=== PATIENT | male | born 1935 | race Asian ===

== ENCOUNTER → 2020-12-21 12:02 | Outpatient (CLI) | payer MEDICARE, OTHER, SELFPAY ==
--- NOTE | 2020-12-21 13:32 | DI.MRI.S_ITS ---
PROCEDURE: MR HEAD/BRAIN WO/W CON INDICATIONS: Benign neoplasm of meninges, unspecified TECHNIQUE: Noncontrast axial T1 spin echo, axial T2 fast spin echo, sagittal and axial FLAIR, coronal T2 fast spin echo, axial gradient echo, axial diffusion and ADC through the brain. After the administration of contrast, axial and coronal T1 spin echo with fat saturation through the brain. COMPARISON: Outside Facility, RG, CT HEAD W/O CONTRAST, 03/17/2019, 9:41. Outside Facility, RG, CT HEAD W/O CONTRAST, 06/04/2019, 13:15. Outside Facility, RG, MRI HEAD W/O CONTRAST, 06/04/2019, 17:02. Outside Facility, RG, CT HEAD W/O CONTRAST, 11/26/2019, 21:35. Outside Facility, RG, MRI HEAD W/WO CONTRAST, 11/27/2019, 7:38. [facility], RG, MRI BRAIN WITHOUT CONTRAST, 12/10/2019, 13:33. This dictation was delayed, awaiting outside prior images, which have now arrived. FINDINGS: Image quality: Excellent. CSF spaces: Basal cisterns are patent. No extra-axial fluid collections. Ventricles are normal in size and shape. Brain: There is again seen an extra-axial mass with a broad attachment to the dura adjacent to the lateral aspect of the right frontal lobe that measures 6 x 3.4 by 6.5 cm. There is associated mass effect seen, with midline shift 6 mm. There is associated edema seen within the right frontal lobe. There is narrowing of the right lateral ventricle. Within the mass itself, there is moderate enhancement, which is more prominent along its rim than elsewhere. There is a potential satellite nodule seen more medially, as on series 15, image 77 measuring 1.4 cm. This is clearly changed compared to the 11/27/2019 examination. There is cerebral volume loss for age. There is periventricular white matter chronic small vessel ischemic change. The brainstem appears normal. Diffusion-weighted images demonstrate no acute ischemic insults. No chronic ischemic insults. Normal intravascular flow voids are present. Skull and face: Calvarial marrow is normal in signal. Orbits appear normal. Sinuses: Sinuses and mastoids appear clear. IMPRESSION: There is an extra-axial mass seen on the right side, which now measures up to 6.5 cm and is clearly and prominently progressed compared to the 11/27/2019 examination. There is associated mass effect, with midline shift of 6 mm. There is associated narrowing of the right lateral ventricle. There is brain edema seen within the right frontal lobe. Given the rapid growth, this may be related to aggressive, recurrent meningioma or be related to another neoplasm. Note: Dr. Duggan was not available to discuss this case at the time of this dictation. Case discussed by telephone with the patient's , Deb, at 7:15 p.m. [place] time on 12/21/2020. Dictated by: Giuseppe Dockery M.D. on 12/21/2020 at 16:55 Transcribed by: SADE on 12/21/2020 at 17:10 Approved by: Giuseppe Dockery M.D. on 12/21/2020 at 19:26
== END ==
PROVIDERS: Family Provider Family Medicine; PCP Family Medicine; Referring Provider Family Medicine; Visit Provider Family Medicine
DX: D32.9 Benign neoplasm of meninges, unspecified (principal); G93.6 Cerebral edema; R53.1 Weakness; R27.9 Unspecified lack of coordination
CPT/HCPCS: 70553; A9579

== ENCOUNTER → 2021-07-21 16:44 | Outpatient (CLI) | payer MEDICARE, OTHER, SELFPAY ==
--- NOTE | 2021-07-21 16:45 | DI.MRI.S_ITS ---
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 After the administration of contrast, axial and coronal 3D VIBE or T1 spin echo with fat saturation through the brain. COMPARISON: Outside Facility, RG, MRI BRAIN W/WO CONTRAST, 01/24/2021, 18:45. Outside Facility, RG, ANGIO CEREBRAL INTERVENTION, 01/18/2021, 11:26. [facility], , MR HEAD/BRAIN WO/W CON, 12/21/2020, 13:12. FINDINGS: Cerebrum, Cerebellum and Brainstem: Volume loss, encephalomalacia, postoperative old blood products and gliosis noted centered on the right temporal and parietal lobes. There is now ex vacuo prominence of the right lateral ventricular trigone, and cerebral edema with associated midline shift has resolved. Extra-axial postoperative fluid noted overlying the right temporal lobe measures up to 1.2 cm in thickness. Overlying duraplasty noted. No abnormal enhancement. Otherwise, there is moderate cerebral and cerebellar volume loss as well as moderate multifocal hyperintensities in the deep and subcortical white matter present. The diffusion sequence is normal without evidence of acute infarct. No intracranial hemorrhage, mass lesion or midline shift. Basal cisterns and foramen magnum contain appropriate anatomy and vascular flow voids. No evidence of dural or leptomeningeal thickening. Ventricles: Appropriate in size and position. No hydrocephalus. Skull Base: The bony sella, pituitary gland and infundibulum unremarkable. Clivus and craniovertebral relationships are appropriate. Visualized portions of the seventh and eighth cranial nerve complexes and internal auditory canals are within normal limits. Incidental pannus at the atlantooccipital joint results in moderate stenosis and flattening of the cord. Scalp and Calvarium: Right-sided craniotomy noted. Remaining calvarium has an appropriate marrow signal. Paranasal Sinuses: Visualized portions of the paranasal sinuses are clear. Mastoids: Unremarkable as visualized. No mastoid effusion present. Orbits: Bilateral intraocular lens replacements noted. The orbits, globes and ocular muscles are otherwise unremarkable. IMPRESSION: 1. Postoperative right parietotemporal encephalomalacia, gliosis, volume loss and old blood products status post right-sided meningioma resection appears within appropriate limits. Cerebral edema and midline shift has resolved. No evidence of recurrent or residual meningioma. 2. Underlying moderate atrophy and multifocal white matter chronic ischemic change without acute infarct. 3. 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 on 07/23/2021 at 21:57
== END ==
PROVIDERS: Family Provider Family Medicine; PCP Family Medicine; Referring Provider Psychiatry & Neurology Vascular Neurology; Visit Provider Psychiatry & Neurology Vascular Neurology
DX: D32.9 Benign neoplasm of meninges, unspecified (principal); G93.89 Other specified disorders of brain; G31.9 Degenerative disease of nervous system, unspecified; M48.02 Spinal stenosis, cervical region
CPT/HCPCS: 70553; A9579

== ENCOUNTER → 2021-08-31 10:49 | Outpatient (CLI) | payer MEDICARE, OTHER, SELFPAY ==
--- NOTE | 2021-08-31 10:58 | DI.CT.S_ITS ---
PROCEDURE: CT ANGIO CHEST PE PROTOCOL INDICATIONS: Shortness of breath TECHNIQUE: After the administration of intravenous contrast, 2 mm thick sections acquired from the pulmonary apices to the posterior costophrenic angles. 3-dimensional maximum intensity projection (MIP) coronal and sagittal reformats were then acquired through the thorax. For radiation dose reduction, the following was used: automated exposure control, adjustment of mA and/or kV according to patient size. COMPARISON: [facility], CT, CHEST/ABD/PEL WITH CONTRAST, 09/14/2014, 8:05. FINDINGS: Image quality: Excellent. Pulmonary arteries: Pulmonary arteries are normal in size, and demonstrate no intraluminal filling defects to suggest central pulmonary embolism. Lungs and pleura: Lungs are clear. No pleural effusions or pneumothorax. Central and peripheral airways are patent. Mediastinum: Heart size is enlarged, without pericardial effusion. Calcification of the coronary vasculature. New hilar and mediastinal adenopathy is present, largest of which measures 11 mm in the right paratracheal location, 18 mm short axis in the right hilar location, and 18 mm short axis in the subcarinal location. Thoracic aorta is normal in caliber and enhancement. Esophagus is normal in caliber, without hiatal hernia. Bones and chest wall: No suspicious bony lesions. Ribs and thoracic spine appear intact throughout. Thyroid gland is grossly unremarkable. Pathologically enlarged right in for axillary lymph node measuring 9 mm short axis. Right supraclavicular adenopathy measuring 10 mm short axis. Abdomen: Visualized portions of the upper abdomen demonstrate splenomegaly (spleen measures at least 17.4 cm ), as well as gastrohepatic ligament adenopathy measuring roughly 14 mm short axis. IMPRESSION: 1. New multifocal adenopathy above and below the diaphragm associated with splenomegaly. Differential considerations include lymphoma, as well as metastatic disease. 2. Coronary artery disease. 3. No pulmonary embolus. Dictated by: [facility] Neves M.D. on 08/31/2021 at 11:39 Approved by: [facility] Neves M.D. on 08/31/2021 at 11:44
== END ==
PROVIDERS: Family Provider Family Medicine; PCP Family Medicine; Referring Provider Family Medicine; Visit Provider Family Medicine
DX: R06.02 Shortness of breath (principal); I51.7 Cardiomegaly; I25.10 Atherosclerotic heart disease of native coronary artery without angina pectoris; R59.1 Generalized enlarged lymph nodes; R16.1 Splenomegaly, not elsewhere classified
CPT/HCPCS: 71275; Q9967

== ENCOUNTER → 2021-11-22 12:05 | Outpatient (CLI) | payer MEDICARE, OTHER, SELFPAY ==
--- NOTE | 2021-11-22 12:07 | DI.MRI.S_ITS ---
PROCEDURE: MR HEAD/BRAIN WO/W CON INDICATIONS: Benign neoplasm of cerebral meninges TECHNIQUE: Noncontrast axial T1 spin echo, axial T2 fast spin echo, sagittal and axial FLAIR, coronal T2 fast spin echo, axial gradient echo, axial diffusion and ADC through the brain. After the administration of contrast, axial and coronal T1 spin echo with fat saturation through the brain. COMPARISON: [facility], MR, MR HEAD/BRAIN WO/W CON, 07/21/2021, 17:07. FINDINGS: Image quality: Excellent. CSF spaces: Basal cisterns are patent. No change in small amount of extra-axial fluid underlying the right temporoparietal calvarial prosthesis. Ex vacuo dilatation of the right lateral ventricular atrium. Ventricles are otherwise normal in size and shape. Brain: No midline shift. No acute intracranial bleeds or masses. Right temporoparietal resection cavity is present, with moderate surrounding stable ill-defined FLAIR signal elevation within the right temporal and parietal lobes, as before. Small amount of low gradient echo signal intensity within the resection cavity, consistent with chronic hemorrhagic products, as before. No acute intracranial hemorrhage is present. Scattered small ill-defined regions of enhancement within the superficial aspects of the temporoparietal resection cavity, as before, consistent with small regions of scarring/gliosis.. No new regions of intracranial enhancement. There is cerebral volume loss for age. There is periventricular white matter chronic small vessel ischemic change. The brainstem appears normal. Diffusion-weighted images demonstrate no acute ischemic insults. No chronic ischemic insults. Normal intravascular flow voids are present. Skull and face: Right temporoparietal craniotomy with placement of underlying graft, as before. Orbits appear normal. Sinuses: Sinuses and mastoids appear clear. IMPRESSION: 1. Stable postsurgical sequelae. 2. No evidence of tumor recurrence. Dictated by: [facility] Neves M.D. on 11/22/2021 at 13:02 Approved by: [facility] Neves M.D. on 11/22/2021 at 13:06
== END ==
PROVIDERS: Family Provider Family Medicine; PCP Family Medicine; Referring Provider Psychiatry & Neurology Vascular Neurology; Visit Provider Psychiatry & Neurology Vascular Neurology
DX: D32.0 Benign neoplasm of cerebral meninges (principal)
CPT/HCPCS: 70553; A9579

== ENCOUNTER → 2022-03-01 11:25 | Outpatient (CLI) | payer MEDICARE, OTHER, SELFPAY ==
--- NOTE | 2022-03-01 11:27 | DI.MRI.S_ITS ---
PROCEDURE: MR HEAD/BRAIN WO/W CON INDICATIONS: BENIGN NEOPLASMS CEREBRIAL MENINGES TECHNIQUE: Noncontrast axial T1 spin echo, axial T2 fast spin echo, sagittal and axial FLAIR, coronal T2 fast spin echo, axial gradient echo, axial diffusion and ADC through the brain. After the administration of contrast, axial and coronal T1 spin echo with fat saturation through the brain. COMPARISON: [facility], MR, MR HEAD/BRAIN WO/W CON, 07/21/2021, 17:07. Outside Facility, , MRI BRAIN W/WO CONTRAST, 01/24/2021, 18:45. [facility], MR, MR HEAD/BRAIN WO/W CON, 11/22/2021, 12:19. FINDINGS: Image quality: Excellent. CSF spaces: Basal cisterns are patent. Right posterior extra-axial fluid can be seen, which is stable from the prior. Ventricles are normal in size and shape. Brain: Postoperative changes are seen, with right posterior cerebral resection, with volume loss and encephalomalacia. Within the resection cavity, no abnormal enhancement can be seen. Generalized thickening can be seen of the right-sided dura, without significant abnormal enhancement. No masses or abnormal enhancement can be seen elsewhere. No midline shift. There is cerebral volume loss for age. There is periventricular white matter chronic small vessel ischemic change. The brainstem appears normal. Diffusion-weighted images demonstrate no acute ischemic insults. No chronic ischemic insults. Normal intravascular flow voids are present. Skull and face: Right posterior craniotomy changes are seen. Calvarial marrow is normal in signal. Orbits appear normal. Note is made of bilateral lens replacements. Sinuses: Likely mucous retention cysts can be seen involving the anterior right maxillary sinus. Sinuses and mastoids otherwise appear clear. Focal pannus and irregularity can be seen involving the region of the tip of the dens. There is mass effect upon the superior ventral spinal cord, as on series 5, image 14, which is stable. IMPRESSION: Stable right posterior cerebral hemisphere resection change, without masses or abnormal enhancement. Stable fluid and thickening of the dura can be seen on the right. Focal pannus and irregularity can be seen involving the region of the tip the dens. Dictated by: Giuseppe Dockery M.D. on 03/01/2022 at 11:41 Approved by: Giuseppe Dockery M.D. on 03/01/2022 at 11:45
== END ==
PROVIDERS: Family Provider Family Medicine; PCP Family Medicine; Referring Provider Psychiatry & Neurology Vascular Neurology; Visit Provider Psychiatry & Neurology Vascular Neurology
DX: D32.0 Benign neoplasm of cerebral meninges (principal); G93.89 Other specified disorders of brain
CPT/HCPCS: 70553

== ENCOUNTER → 2022-06-27 11:54 | Outpatient (CLI) | payer MEDICARE, OTHER, SELFPAY ==
--- NOTE | 2022-06-27 | PATH_ITS ---
Note [facility] Accession Number: [id number] TESTS RESULT FLAG UNITS REF RANGE LAB Clinician Provided Cytology Information No. of containers..01 Other (Miscellaneous) Source: ASCITES DIAGNOSIS: 01 ASCITES NEGATIVE FOR CYTOLOGICALLY MALIGNANT CELLS. SPECIMEN APPEARS TO CONSIST OF MIXED INFLAMMATORY CELLS AND SCATTERED MESOTHELIAL CELLS. THIS INTERPRETATION INCLUDES EVALUATION OF A CELL BLOCK. Pathologist ICD10: 01 R18.8 Signed out by: Miriam Martin MD, Pathologist NPI- [id number] Performed by: Chavez Greenwood, [facility] ([facility]) Gross description: 50 CC, YELLOW, CLOUDY RECEIVED: FRESH IN BLUE CAP CONTAINER. /VDU 06/29/2022 1116 Local FLAG LEGEND: L-Low Normal,H-High Normal,LL-Alert Low,HH-Alert High <-Panic Low,>-Panic High,A-Abnormal,AA-Critical Abnormal Performed at: 01 =Z [facility] [address], [place] [address] Steven Nair MD, Performed at: 01 [facility] [address], [place], [place] [id number] MD Steven Nair MD Phone: [phone]
[2022-06-27 12:30] LABS: Add Manual Diff / Slide Review NO; Basophils Absolute Auto 0 /uL (0-100); Basophils Percent Auto 0.8 % (0-2); Eosinophils Absolute Auto 100 /uL (0-450); Eosinophils Percent Auto 1.8 % (2-4); Hematocrit 33.9 % (41-53); Hemoglobin 11.3 g/dL (13.5-17.5); Lymphocytes Absolute Auto 1600 /uL (1100-4500); Lymphocytes Percent Auto 45.9 % (25-40); Mean Corpuscular HGB Conc 33.3 % (30-36); Mean Corpuscular Hemoglobin 29.1 PG (26-34); Mean Corpuscular Volume 87.3 fL (80-100); Monocytes Absolute Auto 600 /uL (0-900); Monocytes Percent Auto 18.2 % (3-14); Neutrophils Absolute Auto 1100 /uL (1500-7000); Neutrophils Percent Auto 33.3 % (50-75); Platelet Count 68 X10^3/uL (150-400); Red Blood Cell Count 3.89 X10^6/uL (4.5-5.9); Red Cell Distribution Width 15.5 % (11.6-14.8); White Blood Cell Count 3.4 X10^3/uL (4.5-11.0)
--- NOTE | 2022-06-27 14:32 | DI.US.S_ITS ---
PROCEDURE: US PARACENTESIS INDICATIONS: ASCITES TECHNIQUE: The indications, alternatives, benefits, risks, and complications of the procedure were explained to the patient. Written informed consent was obtained and placed in the chart. The abdomen and pelvis were examined sonographically, and an appropriate site was chosen for paracentesis. The skin was prepared and draped in the usual sterile fashion, and 1% lidocaine was infiltrated from the skin down through the peritoneal surface. A 19-gauge catheter-covered needle was then introduced into the peritoneal space, the catheter was advanced and the needle was withdrawn, and thereafter peritoneal fluid was withdrawn. The catheter was then removed and a dressing was applied. The fluid was discarded if the clinician did not order diagnostic testing of the fluid. COMPARISON: None. FINDINGS: Access site: Right lower quadrant Needle: One-Step centesis catheter with introducer needle. Fluid volume and description: 5 L of clear yellow fluid Fluid sent for diagnostic testing: Yes Medications: 1% lidocaine for local anaesthesia. Complications: None. IMPRESSION: Successful ultrasound-guided paracentesis. Dictated by: [facility] Neves M.D. on 07/03/2022 at 11:29 Approved by: [facility] Neves M.D. on 07/03/2022 at 11:30
[2022-06-27 18:34] LABS: Albumin Body Fluid 1.3 g/dL; Amylase Body Fluid < 30 IU/L; Glucose Body Fluid 116 mg/dL; LDH Body Fluid 132 U/L; Total Protein Body Fluid 2.3 g/dL
[2022-06-27 20:32] LABS: Body Fluid Red Blood Cells 2213 /uL; Body Fluid Tot Nucleated Cells 342 /uL
[2022-06-27 20:33] LABS: Body Fluid Appearance SLIGHTLY CLOUDY; Body Fluid Clotted? NO CLOTS PRESENT; Body Fluid Color YELLOW
[2022-06-27 21:05] LABS: Eosinophils Body Fluid 0 %; Mononuclear WBC Body Fluid 80 %; Polynuclear WBC Body Fluid 0 %
[2022-06-27 21:06] LABS: Other Cells Body Fluid 20 %
== END ==
PROVIDERS: Family Provider Family Medicine; PCP Family Medicine; Referring Provider Family Medicine; Visit Provider Family Medicine
DX: R18.8 Other ascites (principal)
CPT/HCPCS: 36415; 49083; 82042; 82150; 82945; 83615; 84157; 85025; 87070; 87075; 87205; 89051

== ENCOUNTER → 2022-07-05 11:00 | Outpatient (CLI) | payer MEDICARE, OTHER, SELFPAY ==
--- NOTE | 2022-07-05 11:10 | DI.CT.S_ITS ---
PROCEDURE: CT CHEST ABD PEL W CON INDICATIONS: Malignant neoplasm of cerebral meninges TECHNIQUE: After the administration of oral and intravenous contrast, axial sections acquired from the supraclavicular neck to the pubic symphysis. Coronal and sagittal reformats were performed. For radiation dose reduction, the following was used: automated exposure control, adjustment of mA and/or kV according to patient size. COMPARISON: [facility], CT, CT CHEST ABDOMEN PELVIS WITH CONTRAST, 01/10/2018, 19:55. [facility], CT, CT ANGIO CHEST PE PROTOCOL, 08/31/2021, 11:21. [facility], CT, CHEST/ABD/PEL WITH CONTRAST, 09/14/2014, 8:05. FINDINGS: Image quality: Excellent. CHEST: Lower Neck: No enlarged lymph nodes. Thyroid: Unremarkable. Axillae: There are multiple enlarged left axillary lymph nodes which are new when compared with the prior CT dated August 31, 2021. Chest Wall: Unremarkable. Lungs and Airways: A 7 mm pulmonary nodule is present within the right lower lobe which is new when compared with the prior CT (series 3/image 162). Interlobular septal thickening is present within the dependent lungs bilaterally suggesting some pulmonary edema. There is a small right and a moderate left low-density pleural effusion. There is collapse of the inferior aspect of the left lung. Heart: Heart size is normal. No pericardial effusion. Thoracic Vessels: The aorta and pulmonary arteries demonstrate normal size. Mediastinum and Cornelia: There are multiple enlarged mediastinal lymph nodes, overall similar in size to the study dated August 31, 2021. Esophagus: No wall thickening. No hiatal hernia. ABDOMEN: Liver: The liver is diminutive with a nodular appearance suggesting cirrhotic transformation. Gallbladder: A 1.7 cm stone is present within the gallbladder fundus. No gallbladder wall thickening. Biliary ducts: Unremarkable. Pancreas: The pancreas is atrophic. Spleen: The spleen measures 19.1 cm in length. Adrenal Glands: Unremarkable. Kidneys and Ureters: Unremarkable. A low-density cyst is present within the upper pole of the left kidney. Stomach and Bowel: Stomach, small bowel loops, and colon are unremarkable. The appendix is thin walled and gas filled. Peritoneum: There is a large amount of low-density abdominal and pelvic ascites. Ventral Wall: No hernia. Abdominal Nodes: There are multiple markedly enlarged retroperitoneal lymph nodes. For example, a customer retention representative node measures 1.8 cm in diameter. Vessels: Aorta and inferior vena cava are normal in size. There are scattered atheromatous calcifications throughout the aorta and iliac arteries bilaterally. PELVIS: Pelvic Organs: Unremarkable. Bladder: Unremarkable. Pelvic Nodes: There are multiple enlarged pelvic lymph nodes. Miscellaneous: There are multiple enlarged inguinal lymph nodes. There is diffuse anasarca. Bones: Unremarkable. IMPRESSION: 1. Bilateral pleural effusions, greater on the left than on the right and collapse of the inferior left lung. 2. New left axillary adenopathy. Mediastinal adenopathy is similar to the study dated August 31, 2021. 3. Large volume abdominal pelvic ascites. 4. Findings suspicious for cirrhotic transformation of the liver and marked splenomegaly suggesting portal hypertension. 5. 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 6. Diffuse anasarca. Dictated by: Jadyn Pino M.D. on 07/05/2022 at 16:51 Approved by: Jadyn Pino M.D. on 07/05/2022 at 17:01
--- NOTE | 2022-07-05 11:11 | DI.MRI.S_ITS ---
PROCEDURE: MR HEAD/BRAIN WO/W CON INDICATIONS: Malignant neoplasm of cerebral meninges TECHNIQUE: Noncontrast axial T1 spin echo, axial T2 fast spin echo, sagittal and axial FLAIR, coronal T2 fast spin echo, axial gradient echo, axial diffusion and ADC through the brain. After the administration of contrast, axial and coronal and sagittal T1 spin echo with fat saturation through the brain. COMPARISON: [facility], , MR HEAD/BRAIN WO/W CON, 03/01/2022, 11:48. FINDINGS: Image quality: Excellent. CSF spaces: Basal cisterns are patent. Extra-axial fluid overlying the right frontoparietal lobe is unchanged.. Ventricles are normal in size and shape. Brain: No midline shift. No acute intracranial bleeds or masses. There is ill-defined enhancement within the right lateral temporal lobe adjacent to the resection cavity, measuring roughly 13 mm anteroposterior by 16 mm craniocaudal. There is ill-defined enhancement measuring roughly 14 mm within the inferolateral aspect of the right posterior temporal lobe. Resection cavity within the right frontoparietal and temporal lobe present, as before, with moderate surrounding ill-defined FLAIR signal elevation, consistent with post treatment sequelae. There is cerebral volume loss for age. There is periventricular white matter chronic small vessel ischemic change. No change in pannus surrounding the odontoid tip with associated mass effect upon the cervical medullary junction.The brainstem otherwise appears normal. Diffusion-weighted images demonstrate no acute ischemic insults. No chronic ischemic insults. Normal intravascular flow voids are present. Skull and face: Right fronto temporal craniotomy has been performed, as before. signal. Orbits appear normal. Sinuses: Sinuses and mastoids appear clear. IMPRESSION: 1. Postsurgical sequelae. 2. Ill-defined enhancement within the right temporal lobe, possibly indicating recurrent neoplasm. 3. No change in pannus surrounding the odontoid tip with associated mass effect upon the cervicomedullary junction. Dictated by: [facility] Neves M.D. on 07/05/2022 at 14:02 Approved by: [facility] Neves M.D. on 07/05/2022 at 14:06
[2022-07-05 11:47] LABS: Add Manual Diff / Slide Review NO; Basophils Absolute Auto 0 /uL (0-100); Basophils Percent Auto 0.9 % (0-2); Eosinophils Absolute Auto 0 /uL (0-450); Eosinophils Percent Auto 1.6 % (2-4); Hematocrit 31.9 % (41-53); Hemoglobin 10.7 g/dL (13.5-17.5); Lymphocytes Absolute Auto 1200 /uL (1100-4500); Lymphocytes Percent Auto 43.9 % (25-40); Mean Corpuscular HGB Conc 33.5 % (30-36); Mean Corpuscular Hemoglobin 29.3 PG (26-34); Mean Corpuscular Volume 87.3 fL (80-100); Monocytes Absolute Auto 500 /uL (0-900); Monocytes Percent Auto 18.1 % (3-14); Neutrophils Absolute Auto 900 /uL (1500-7000); Neutrophils Percent Auto 35.5 % (50-75); Platelet Count 64 X10^3/uL (150-400); Red Blood Cell Count 3.66 X10^6/uL (4.5-5.9); Red Cell Distribution Width 15.7 % (11.6-14.8); White Blood Cell Count 2.6 X10^3/uL (4.5-11.0)
[2022-07-05 12:46] LABS: INR 1.1 (0.9-1.3); Prothrombin Time 12.5 SECONDS (10.1-12.7)
[2022-07-05 12:49] LABS: PTT Partial Thromboplastin Tim 36 SECONDS (26-36)
[2022-07-05 12:56] LABS: Alanine Aminotransferase 48 IU/L (<50); Albumin 3.2 g/dL (3.5-5.0); Albumin Globulin Ratio 1.6 (1.0-2.8); Alkaline Phosphatase 232 U/L (38-126); Aspartate Aminotransferase 61 IU/L (17-59); BUN Creatinine Ratio 22.7 (6-22); Bilirubin Total 1.5 mg/dL (0.2-1.3); Blood Urea Nitrogen 17 mg/dL (9-20); Calcium 8.3 mg/dL (8.4-10.2); Carbon Dioxide 26 mmol/L (22-32); Chloride 106 mmol/L (98-107); Estimated Glomerular Filt Rate > 60 mL/min (>60); Glucose 99 mg/dL (80-110); HEMOLYSIS < 15 (0-50); Potassium 4.2 mmol/L (3.4-5.1); Sodium 139 mmol/L (137-145); Total Protein 5.2 g/dL (6.3-8.2)
[2022-07-06 07:27] LABS: Alpha Fetoprotein <0.9 ng/mL (0.0-6.4)
== END ==
PROVIDERS: Family Provider Family Medicine; PCP Family Medicine; Referring Provider Family Medicine; Visit Provider Family Medicine
DX: C70.0 Malignant neoplasm of cerebral meninges (principal); R18.8 Other ascites; C70.9 Malignant neoplasm of meninges, unspecified; D61.818 Other pancytopenia; J90 Pleural effusion, not elsewhere classified
CPT/HCPCS: 36415; 70553; 71260; 74177; 80053; 82105; 82378; 85025; 85610; 85730; 99281; A9579; Q9967

== ENCOUNTER → 2022-07-09 12:19 | Outpatient (CLI) | payer MEDICARE, OTHER, SELFPAY ==
--- NOTE | 2022-07-09 12:20 | DI.US.S_ITS ---
PROCEDURE: US PARACENTESIS INDICATIONS: ASCITIES TECHNIQUE: The indications, alternatives, benefits, risks, and complications of the procedure were explained to the patient. Written informed consent was obtained and placed in the chart. The abdomen and pelvis were examined sonographically, and an appropriate site was chosen for paracentesis. The skin was prepared and draped in the usual sterile fashion, and 1% lidocaine was infiltrated from the skin down through the peritoneal surface. A 19-gauge catheter-covered needle was then introduced into the peritoneal space, the catheter was advanced and the needle was withdrawn, and thereafter peritoneal fluid was withdrawn. The catheter was then removed and a dressing was applied. The fluid was discarded if the clinician did not order diagnostic testing of the fluid. COMPARISON: [facility], PARACENTESIS, 06/27/2022, 15:00. FINDINGS: Access site: Right lower quadrant Needle: One-Step centesis catheter with introducer needle. Fluid volume and description: 5000 cc clear yellow Fluid sent for diagnostic testing: None Medications: 1% lidocaine for local anaesthesia. Complications: None. IMPRESSION: Successful ultrasound-guided paracentesis. Dictated by: Jadyn Pino M.D. on 07/09/2022 at 17:18 Approved by: Jadyn Pino M.D. on 07/09/2022 at 17:19
== END ==
PROVIDERS: Family Provider Family Medicine; PCP Family Medicine; Referring Provider Family Medicine; Visit Provider Family Medicine
DX: R18.8 Other ascites (principal)
CPT/HCPCS: 49083

== ENCOUNTER 2022-07-31 11:07 | Emergency (ER) | payer MEDICARE, OTHER, SELFPAY ==
[2022-07-31] VITALS (20 sets, daily range): BP systolic 118–149; BP diastolic 59–68; PULSE 48–52; RESP 9–18; TEMP 36.7; O2SAT 75–100; BMI 29.2
--- NOTE | 2022-07-31 11:28 | ED.SOB ---
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 He denies any fever or chills nor any overlying redness. His last paracentesis was 3 weeks ago and he and family have been trying to get another scheduled but were told that they were booked out hence his presentation to the emergency department. Related Data Home Medications Medication Instructions Recorded Confirmed levetiracetam 500 mg tablet 2,500 mg PO DAILY 01/11/21 04/26/22 (Keppra) nifedipine 30 mg tablet,extended 30 mg PO DAILY 01/11/21 04/26/22 release propranolol 40 mg tablet 20 mg PO BID 01/11/21 04/26/22 oxcarbazepine 150 mg tablet 150 mg PO BID 01/25/22 04/26/22 Allergies Allergy/AdvReac Type Severity Reaction Status Date / Time ondansetron [From Zofran] Allergy Verified 07/05/22 13:58 Review of Systems Review of Systems Narrative: GENERAL: Denies chills, fatigue, malaise, fever, sweats. HEENT: Denies sinus pain, ear pain, sore throat, difficulty swallowing, dizziness. RESPIRATORY: See HPI CARDIOVASCULAR: Denies chest pain, palpitations, orthopnea, edema, GASTROINTESTINAL: See HPI : Denies dysuria, frequency, incontinence, hematuria, urinary retention. MUSCULOSKELETAL: denies weakness, joint pain, or bony pain SKIN: Denies rash, skin lesions, or other NEUROLOGIC: Denies weakness, headache, numbness, change in speech, confusion, seizures, incoordination. PSYCHIATRIC: No concerning psychosocial issues. 12 point review of systems is negative except for those stated above Patient History Social History Smoking Status: Unknown if ever smoked Smoking Status: Unknown if ever smoked alcohol intake frequency: holidays/special occasions only Substance Use Type: does not use Exam Narrative Exam Narrative: GENERAL: [86] year old patient appears stated age. Well-developed patient, in mild distress. Obviously uncomfortable, no hypoxemia HEAD: Atraumatic. Normocephalic. EYES: Pupils equal round and reactive. Extraocular motions intact. No scleral icterus. No injection or drainage. ENT: Nose without bleeding, purulent drainage. Throat without erythema, tonsillar hypertrophy or exudate. Airway patent. NECK: Trachea midline. Non tender CARDIOVASCULAR: Regular rate and rhythm without murmurs, gallops, or rubs. RESPIRATORY: Clear to auscultation. Breath sounds equal bilaterally. No wheezes, rales, or rhonchi. GASTROINTESTINAL: Distended, consistent with ascites EXTREMITIES: No edema or joint tenderness. BACK: Nontender without deformity or crepitance. No flank tenderness. NEURO: AOx3. SKIN: No rash or erythema of visible areas Initial Vital Signs Initial Vital Signs: Vital Signs Pulse Oximetry 75 L 07/31/22 11:15 Procedures Paracentesis Time Out Performed: Yes Indication: Ascites Procedure: therapeutic paracentesis Location: RLQ Local Anesthetic: lidocaine 2% Amount of anesthesia used (mL): 4 Bedside Ultrasound Used: yes, Ascites confirmed and location marked Preparation: sterile prep and drape Amount of fluid obtained (mL): 4,800 Fluid: clear and sent to lab for analysis Size of Needle Used: 5 Post Procedure Exam: awake, alert, normal BP, normal HR and normal SpO2 Patient Tolerated Procedure: Well Course Orders Ordered: ED Orders 07/31/22 11:29 Chest [XR chest 1V] Stat 07/31/22 11:30 US abdomen limited Stat EKG-12 Lead Stat 07/31/22 12:35 Blood Culture Stat Complete Blood Count AUTO DIFF Stat Comprehensive Metabolic Panel Stat Lactate (Lactic Acid) Stat NT-proBNP (BNP-Adult 18+) Stat Prothrombin Time INR Stat Troponin & CK Cardiac Panel Stat 07/31/22 12:47 COVID19 -Nasal RAPID/Pre-Proc Stat 07/31/22 14:32 Body Fluid Culture Stat Cell Count w Diff Body Fluid Stat Discontinued Medications Lidocaine HCl (Lidocaine 2% Inj Mdv 20ml) 1 ml SUBCUT NOW ONE Stop: 07/31/22 13:45 Last Admin: 07/31/22 14:14 Dose: 1 ml Documented By: RB Vital Signs Vital signs: Vital Signs - 8 hr 07/31/22 11:46 07/31/22 11:15 07/31/22 11:17 Temperature 98.1 F Pulse Rate 50 L Respiratory Rate 18 Blood Pressure 132/62 149/68 H Pulse Oximetry 96 75 L Oxygen Delivery Method Room Air 07/31/22 11:17 07/31/22 11:30 07/31/22 11:30 Temperature Pulse Rate 52 L 48 L Respiratory Rate 14 Blood Pressure 136/67 Pulse Oximetry 99 100 Oxygen Delivery Method 07/31/22 12:00 07/31/22 12:30 07/31/22 12:54 Temperature Pulse Rate 51 L 51 L 50 L Respiratory Rate 15 16 13 Blood Pressure Pulse Oximetry 99 Oxygen Delivery Method 07/31/22 12:54 07/31/22 13:00 07/31/22 13:00 Temperature Pulse Rate 50 L Respiratory Rate Blood Pressure 132/62 120/61 Pulse Oximetry 100 Oxygen Delivery Method 07/31/22 13:30 07/31/22 13:30 07/31/22 14:00 Temperature Pulse Rate 50 L Respiratory Rate 14 Blood Pressure 135/63 141/67 H Pulse Oximetry 99 Oxygen Delivery Method 07/31/22 14:00 07/31/22 14:30 07/31/22 14:30 Temperature Pulse Rate 50 L 50 L Respiratory Rate 13 14 Blood Pressure 131/67 Pulse Oximetry 100 100 Oxygen Delivery Method 07/31/22 14:54 07/31/22 14:54 07/31/22 15:00 Temperature Pulse Rate 50 L Respiratory Rate 12 Blood Pressure 134/64 142/63 H Pulse Oximetry 99 Oxygen Delivery Method 07/31/22 15:00 07/31/22 15:10 07/31/22 15:10 Temperature Pulse Rate 50 L 51 L Respiratory Rate 14 13 Blood Pressure 130/65 Pulse Oximetry 100 100 Oxygen Delivery Method 07/31/22 15:14 07/31/22 15:14 07/31/22 15:20 Temperature Pulse Rate 52 L Respiratory Rate 13 Blood Pressure 118/60 127/65 Pulse Oximetry 100 Oxygen Delivery Method 07/31/22 15:20 07/31/22 15:30 07/31/22 15:30 Temperature Pulse Rate 51 L 51 L Respiratory Rate 14 14 Blood Pressure 125/63 Pulse Oximetry 98 100 Oxygen Delivery Method 07/31/22 15:40 07/31/22 15:40 07/31/22 15:50 Temperature Pulse Rate 50 L Respiratory Rate 9 L Blood Pressure 127/62 121/59 L Pulse Oximetry 100 Oxygen Delivery Method 07/31/22 15:50 07/31/22 15:55 07/31/22 15:55 Temperature Pulse Rate 51 L 51 L Respiratory Rate Blood Pressure 140/65 Pulse Oximetry 100 100 Oxygen Delivery Method MDM - SOB/Dyspnea Lab Data Result diagrams: 07/31/22 12:35 07/31/22 12:35 Labs: Lab Results 07/31/22 07/31/22 07/31/22 Range/Units 12:35 12:35 12:35 WBC 2.4 L (4.5-11.0) X10^3/uL RBC 3.48 L (4.5-5.9) X10^6/uL Hgb 10.2 L (13.5-17.5) g/dL Hct 30.3 L (41-53) % MCV 87.2 (80-100) fL MCH 29.5 (26-34) PG MCHC 33.8 (30-36) % RDW 15.3 H (11.6-14.8) % Plt Count 67 L (150-400) X10^3/uL Neut % (Auto) 35.3 L (50-75) % Lymph % (Auto) 47.3 H (25-40) % Nicollet % (Auto) 15.6 H (3-14) % Eos % (Auto) 1.3 L (2-4) % Baso % (Auto) 0.5 (0-2) % Neut # (Auto) 800 L (6382-9482) /uL Lymph # (Auto) 1100 (4927-5328) /uL Nicollet # (Auto) 400 (0-900) /uL Eos # (Auto) 0 (0-450) /uL Baso # (Auto) 0 (0-100) /uL PT 13.3 H (10.1-12.7) SECONDS INR 1.2 (0.9-1.3) Sodium 139 (137-145) mmol/L Potassium 4.4 (3.4-5.1) mmol/L Chloride 106 (98-107) mmol/L Carbon Dioxide 28 (22-32) mmol/L BUN 25 H (9-20) mg/dL Creatinine 0.89 (0.66-1.25) mg/dL Estimated GFR > 60 (>60) mL/min BUN/Creatinine Ratio 28.1 H (6-22) Glucose 101 (80-110) mg/dL Lactate (0.7-2.1) mmol/L Calcium 8.3 L (8.4-10.2) mg/dL Total Bilirubin 1.4 H (0.2-1.3) mg/dL AST 42 (17-59) IU/L ALT 35 (<50) IU/L Alkaline Phosphatase 267 H (38-126) U/L Total Creatine Kinase < 20 L (55-170) U/L CK-MB (CK-2) TNP CK-MB (CK-2) Rel Index TNP Troponin I < 0.012 (0.01-0.034) ng/mL NT-Pro-B Natriuret Pep 571 H (<450) pg/mL Total Protein 5.2 L (6.3-8.2) g/dL Albumin 3.0 L (3.5-5.0) g/dL Globulin 2.2 (1.7-4.1) g/dL Albumin/Globulin Ratio 1.4 (1.0-2.8) Fluid Color Fluid Appearance Fluid RBC /uL Fld Tot Nucleated Cell /uL Fluid Polynuclear WBCs % Fluid Mononuclear WBCs % Fluid Eosinophils % Fluid Other Cells % Body Fluid Clot SARS-CoV-2 (PCR) (Negative) 07/31/22 07/31/22 07/31/22 Range/Units 12:35 12:47 14:32 WBC (4.5-11.0) X10^3/uL RBC (4.5-5.9) X10^6/uL Hgb (13.5-17.5) g/dL Hct (41-53) % MCV (80-100) fL MCH (26-34) PG MCHC (30-36) % RDW (11.6-14.8) % Plt Count (150-400) X10^3/uL Neut % (Auto) (50-75) % Lymph % (Auto) (25-40) % Nicollet % (Auto) (3-14) % Eos % (Auto) (2-4) % Baso % (Auto) (0-2) % Neut # (Auto) (0530-6720) /uL Lymph # (Auto) (8306-1822) /uL Nicollet # (Auto) (0-900) /uL Eos # (Auto) (0-450) /uL Baso # (Auto) (0-100) /uL PT (10.1-12.7) SECONDS INR (0.9-1.3) Sodium (137-145) mmol/L Potassium (3.4-5.1) mmol/L Chloride (98-107) mmol/L Carbon Dioxide (22-32) mmol/L BUN (9-20) mg/dL Creatinine (0.66-1.25) mg/dL Estimated GFR (>60) mL/min BUN/Creatinine Ratio (6-22) Glucose (80-110) mg/dL Lactate 1.4 (0.7-2.1) mmol/L Calcium (8.4-10.2) mg/dL Total Bilirubin (0.2-1.3) mg/dL AST (17-59) IU/L ALT (<50) IU/L Alkaline Phosphatase (38-126) U/L Total Creatine Kinase (55-170) U/L CK-MB (CK-2) CK-MB (CK-2) Rel Index Troponin I (0.01-0.034) ng/mL NT-Pro-B Natriuret Pep (<450) pg/mL Total Protein (6.3-8.2) g/dL Albumin (3.5-5.0) g/dL Globulin (1.7-4.1) g/dL Albumin/Globulin Ratio (1.0-2.8) Fluid Color Yellow Fluid Appearance Slightly cloudy Fluid RBC 1635 /uL Fld Tot Nucleated Cell 275 /uL Fluid Polynuclear WBCs 2 % Fluid Mononuclear WBCs 98 % Fluid Eosinophils 0 % Fluid Other Cells 0 % Body Fluid Clot No clots present SARS-CoV-2 (PCR) Negative (Negative) Discharge Plan Departure Patient Disposition: Home Clinical Impression: Abdominal ascites Qualifiers: Ascites type: other type Qualified Code(s): R18.8 - Other ascites Instructions: DI for Abdominal Paracentesis Activity Restrictions/Additional Instructions: *You have been diagnosed with [symptomatic ascites. We performed a paracentesis and removed just under 5 L of fluid] *What to do: *Please continue to take your regular medications as directed. *Please follow up with your primary care provider in 2-3 days, call for an appointment. Let them know you were seen in the Emergency Department and that we ask that you be seen in follow up. We will electronically transmit a record of today's note if your PCP is in our system *If you do not have a primary care provider please contact the [facility] Resource line at [phone]. They will ask some questions about your medical history and help get you set up with a doctor in the community. *Return to Emergency Department if you should have any new, worsening or concerning symptoms, such as [fever greater than 101 F, shaking chills, worsening pain, persistent vomiting or other bothersome symptoms] Prescriptions: No Action levetiracetam [Keppra] 500 mg Tablet 2,500 mg PO DAILY Label Comments: 1000 mg am 1500 mg hs nifedipine 30 mg Tablet Extended Release 30 mg PO DAILY propranolol 40 MG tablet 20 mg PO BID oxcarbazepine 150 mg Tablet 150 mg PO BID Referrals: Cat Navarro MD [Primary Care Provider] -
--- NOTE | 2022-07-31 11:29 | DI.RAD.S_ITS ---
PROCEDURE: XR CHEST 1V INDICATIONS: SOB TECHNIQUE: One view of the chest was acquired. COMPARISON: [facility], CT, CT CHEST ABD PEL W CON, 07/05/2022, 13:33. [facility], CR, CHEST 1 VIEW, 07/23/2011, 22:31. FINDINGS: Surgical changes and devices: None. Lungs and pleura: There is persistent appearance of predominantly left lower lobe/retrocardiac opacity. Mediastinum: Mediastinal contours appear normal. Heart size is enlarged. Bones and chest wall: No suspicious bony lesions. Overlying soft tissues appear unremarkable. IMPRESSION: Persistent right lower lobe/retrocardiac opacities suggestive of pneumonia. Recommend interval follow-up to document resolution after appropriate therapy and exclude presence of underlying mass lesion. Dictated by: Gina Cali M.D. on 07/31/2022 at 12:20 Approved by: Gina Cali M.D. on 07/31/2022 at 12:21
--- NOTE | 2022-07-31 11:30 | DI.US.S_ITS ---
PROCEDURE: US ABDOMEN LIMITED INDICATIONS: CONCEPCIÓN FOR PARACENTESIS TECHNIQUE: Real-time focused scanning was performed of the abdomen, with image documentation. COMPARISON: None. FINDINGS: Marking for paracentesis is noted. Largest pocket is in the right lower quadrant. There is a 7.5 cm distance from the skin surface to within the midportion of the fluid pocket. IMPRESSION: Paracentesis marking. Dictated by: Gina Cali M.D. on 07/31/2022 at 12:20 Approved by: Gina Cali M.D. on 07/31/2022 at 12:20
[2022-07-31 12:59] LABS: Add Manual Diff / Slide Review NO; Basophils Absolute Auto 0 /uL (0-100); Basophils Percent Auto 0.5 % (0-2); Eosinophils Absolute Auto 0 /uL (0-450); Eosinophils Percent Auto 1.3 % (2-4); Hematocrit 30.3 % (41-53); Hemoglobin 10.2 g/dL (13.5-17.5); Lymphocytes Absolute Auto 1100 /uL (1100-4500); Lymphocytes Percent Auto 47.3 % (25-40); Mean Corpuscular HGB Conc 33.8 % (30-36); Mean Corpuscular Hemoglobin 29.5 PG (26-34); Mean Corpuscular Volume 87.2 fL (80-100); Monocytes Absolute Auto 400 /uL (0-900); Monocytes Percent Auto 15.6 % (3-14); Neutrophils Absolute Auto 800 /uL (1500-7000); Neutrophils Percent Auto 35.3 % (50-75); Platelet Count 67 X10^3/uL (150-400); Red Blood Cell Count 3.48 X10^6/uL (4.5-5.9); Red Cell Distribution Width 15.3 % (11.6-14.8); White Blood Cell Count 2.4 X10^3/uL (4.5-11.0)
[2022-07-31 13:05] LABS: INR 1.2 (0.9-1.3); Prothrombin Time 13.3 SECONDS (10.1-12.7)
[2022-07-31 13:10] LABS: Alanine Aminotransferase 35 IU/L (<50); Albumin Globulin Ratio 1.4 (1.0-2.8); Alkaline Phosphatase 267 U/L (38-126); Aspartate Aminotransferase 42 IU/L (17-59); BUN Creatinine Ratio 28.1 (6-22); Bilirubin Total 1.4 mg/dL (0.2-1.3); Blood Urea Nitrogen 25 mg/dL (9-20); Calcium 8.3 mg/dL (8.4-10.2); Carbon Dioxide 28 mmol/L (22-32); Chloride 106 mmol/L (98-107); Creatine Kinase < 20 U/L (55-170); Estimated Glomerular Filt Rate > 60 mL/min (>60); Globulin 2.2 g/dL (1.7-4.1); Glucose 101 mg/dL (80-110); HEMOLYSIS < 15 (0-50); Lactate (Lactic Acid) 1.4 mmol/L (0.7-2.1); Potassium 4.4 mmol/L (3.4-5.1); Sodium 139 mmol/L (137-145); Total Protein 5.2 g/dL (6.3-8.2)
[2022-07-31 13:15] LABS: COVID19 -Nasal RAPID Negative (Negative)
[2022-07-31 13:22] LABS: NT-proBNP (BNP-Adult 18+) 571 pg/mL (<450); Troponin I < 0.012 ng/mL (0.01-0.034)
[2022-07-31] MEDS: LIDOCAINE 2% INJ MDV 20ML SUBCUT (14:14)
[2022-07-31 14:58] LABS: Body Fluid Red Blood Cells 1635 /uL; Body Fluid Tot Nucleated Cells 275 /uL
[2022-07-31 15:02] LABS: Body Fluid Appearance SLIGHTLY CLOUDY; Body Fluid Clotted? NO CLOTS PRESENT; Body Fluid Color YELLOW
[2022-07-31 15:14] LABS: Eosinophils Body Fluid 0 %; Mononuclear WBC Body Fluid 98 %; Other Cells Body Fluid 0 %; Polynuclear WBC Body Fluid 2 %
== END 2022-07-31 19:57 | disposition home or self-care (01) ==
PROVIDERS: Emergency Provider Emergency Medicine; Family Provider Family Medicine; PCP Family Medicine
DX: R18.8 Other ascites (principal); R06.02 Shortness of breath; Z20.822 Contact with and (suspected) exposure to COVID-19
CPT/HCPCS: 36415; 49082; 71045; 76705; 80053; 82550; 83605; 83880; 84484; 85025; 85610; 87040; 87070; 87075; 87205; 87635; 89051; 93005; 99283; 99284; C9803

== ENCOUNTER → 2022-08-14 12:56 | Outpatient (CLI) | payer MEDICARE, OTHER, SELFPAY ==
--- NOTE | 2022-08-14 12:59 | DI.US.S_ITS ---
PROCEDURE: US PARACENTESIS INDICATIONS: ASCITES TECHNIQUE: The indications, alternatives, benefits, risks, and complications of the procedure were explained to the patient. Written informed consent was obtained and placed in the chart. The abdomen and pelvis were examined sonographically, and an appropriate site was chosen for paracentesis. The skin was prepared and draped in the usual sterile fashion, and 1% lidocaine was infiltrated from the skin down through the peritoneal surface. A 19-gauge catheter-covered needle was then introduced into the peritoneal space, the catheter was advanced and the needle was withdrawn, and thereafter peritoneal fluid was withdrawn. The catheter was then removed and a dressing was applied. The fluid was discarded if the clinician did not order diagnostic testing of the fluid. COMPARISON: [facility], ABDOMEN LIMITED, 07/31/2022, 11:45. [facility], PARACENTESIS, 06/27/2022, 15:00. FINDINGS: Access site: Right lower quadrant. Needle: One-Step centesis catheter with introducer needle. Fluid volume and description: 5000 cc; clear Fluid sent for diagnostic testing: Not requested by referring physician. Medications: 1% lidocaine for local anaesthesia. Complications: None. IMPRESSION: Successful ultrasound-guided paracentesis. Dictated by: David Fan M.D. on 08/14/2022 at 16:51 Approved by: David Fan M.D. on 08/14/2022 at 16:52
== END ==
PROVIDERS: Family Provider Family Medicine; PCP Family Medicine; Referring Provider Family Medicine; Visit Provider Family Medicine
DX: R18.8 Other ascites (principal)
CPT/HCPCS: 49083

== ENCOUNTER → 2022-08-28 12:45 | Outpatient (CLI) | payer MEDICARE, OTHER, SELFPAY ==
--- NOTE | 2022-08-28 12:48 | DI.US.S_ITS ---
PROCEDURE: US PARACENTESIS INDICATIONS: ASCITES TECHNIQUE: The indications, alternatives, benefits, risks, and complications of the procedure were explained to the patient. Written informed consent was obtained and placed in the chart. The abdomen and pelvis were examined sonographically, and an appropriate site was chosen for paracentesis. The skin was prepared and draped in the usual sterile fashion, and 1% lidocaine was infiltrated from the skin down through the peritoneal surface. A 19-gauge catheter-covered needle was then introduced into the peritoneal space, the catheter was advanced and the needle was withdrawn, and thereafter peritoneal fluid was withdrawn. The catheter was then removed and a dressing was applied. The fluid was discarded if the clinician did not order diagnostic testing of the fluid. COMPARISON: [facility], , PARACENTESIS, 08/14/2022, 13:25. FINDINGS: Access site: Right lower quadrant abdomen. Needle: One-Step centesis catheter with introducer needle. Fluid volume and description: 5 liters of yellowish clear fluid. Fluid sent for diagnostic testing: None. Medications: 1% lidocaine for local anaesthesia. Complications: None. IMPRESSION: Successful ultrasound-guided paracentesis. Dictated by: Escobar Lomax M.D. on 08/28/2022 at 14:48 Approved by: Escobar Lomax M.D. on 08/28/2022 at 14:50
== END ==
PROVIDERS: Family Provider Family Medicine; PCP Family Medicine; Referring Provider Family Medicine; Visit Provider Family Medicine
DX: R18.8 Other ascites (principal)
CPT/HCPCS: 49083

== ENCOUNTER → 2022-09-26 10:50 | Outpatient (CLI) | payer MEDICARE, OTHER, SELFPAY ==
--- NOTE | 2022-09-26 10:53 | DI.US.S_ITS ---
PROCEDURE: US PARACENTESIS INDICATIONS: ASCITES TECHNIQUE: The indications, alternatives, benefits, risks, and complications of the procedure were explained to the patient. Written informed consent was obtained and placed in the chart. The abdomen and pelvis were examined sonographically, and an appropriate site was chosen for paracentesis. The skin was prepared and draped in the usual sterile fashion, and 1% lidocaine was infiltrated from the skin down through the peritoneal surface. A 19-gauge catheter-covered needle was then introduced into the peritoneal space, the catheter was advanced and the needle was withdrawn, and thereafter peritoneal fluid was withdrawn. The catheter was then removed and a dressing was applied. The fluid was discarded if the clinician did not order diagnostic testing of the fluid. COMPARISON: [facility], PARACENTESIS, 08/14/2022, 13:25. FINDINGS: Access site: Right lower quadrant Needle: One-Step centesis catheter with introducer needle. Fluid volume and description: 5000 mL. Clear. Fluid sent for diagnostic testing: Not requested by referring doctor. Medications: 1% lidocaine for local anaesthesia. Complications: None. IMPRESSION: Successful ultrasound-guided paracentesis. Dictated by: David Fan M.D. on 09/26/2022 at 14:43 Approved by: David Fan M.D. on 09/26/2022 at 14:43
[2022-09-26 11:32] LABS: Add Manual Diff / Slide Review NO; Basophils Absolute Auto 100 /uL (0-100); Basophils Percent Auto 1.3 % (0-2); Eosinophils Absolute Auto 100 /uL (0-450); Eosinophils Percent Auto 2.2 % (2-4); Hemoglobin 11.9 g/dL (13.5-17.5); Lymphocytes Absolute Auto 2100 /uL (1100-4500); Lymphocytes Percent Auto 48.2 % (25-40); Mean Corpuscular Hemoglobin 29.3 PG (26-34); Mean Corpuscular Volume 88.7 fL (80-100); Monocytes Absolute Auto 600 /uL (0-900); Monocytes Percent Auto 14.9 % (3-14); Neutrophils Absolute Auto 1400 /uL (1500-7000); Neutrophils Percent Auto 33.4 % (50-75); Platelet Count 89 X10^3/uL (150-400); Red Blood Cell Count 4.06 X10^6/uL (4.5-5.9); Red Cell Distribution Width 15.7 % (11.6-14.8); White Blood Cell Count 4.3 X10^3/uL (4.5-11.0)
[2022-09-26 11:38] LABS: INR 1.1 (0.9-1.3); Prothrombin Time 12.4 SECONDS (10.1-12.7)
[2022-09-26 11:41] LABS: PTT Partial Thromboplastin Tim 37 SECONDS (26-36)
== END ==
PROVIDERS: Radiology Diagnostic Radiology; Family Provider Family Medicine; PCP Family Medicine; Referring Provider Family Medicine; Visit Provider Family Medicine
DX: R18.8 Other ascites (principal)
CPT/HCPCS: 49083; 85025; 85610; 85730